=== PATIENT | female | born 1960 | race Caucasian/White ===

== ENCOUNTER 2024-11-30 03:09 | Inpatient (IN) | payer OTHER, SELFPAY ==
[2024-11-29 22:37] VITALS: BP 129/78
[2024-11-29 22:39] LABS: Glucose - Point of Care 89 mg/dl (70-99)
[2024-11-29 23:00] VITALS: BP 102/63
[2024-11-29 23:08] LABS: % Basophils 0.1 % (0-2); % Eosinophils 0.6 % (0-6); % Immature Granulocytes 0.8 % (0-0.5); % Lymphocytes 9.4 % (20.5-51.1); % Monocytes 7.4 % (1.7-9.3); % Neutrophils 81.7 % (42.2-75.2); Absolute Eosinophils 0.1 10^3/uL (0-0.7); Absolute Immature Granulocytes 0.1 10^3/uL (0-0.05); Absolute Lymphocytes 0.9 10^3/uL (1.2-3.4); Absolute Monocytes 0.7 10^3/uL (0.1-0.6); Absolute Neutrophils 8.2 10^3/uL (1.4-6.5); Hematocrit 27.7 % (37.0-47.0); Hemoglobin 8.8 g/dL (12.0-16.0); Mean Corp Hgb Conc. 31.8 g/dL (33.0-37.0); Mean Corpuscular Hgb 28.9 pg (27.0-31.0); Mean Corpuscular Volume 90.8 fL (81.0-99.0); Mean Platelet Volume 10.2 fL (7.4-10.4); Nucleated Red Blood Cells % 0 %; Platelet Count 274 10^3/uL (130-400); Red Blood Cell Count 3.05 10^6/uL (4.20-5.40); Red Cell Dist. Width 15.4 % (11.5-14.5)
[2024-11-29 23:14] LABS: ALT (SGPT) 12 U/L (0-35); AST (SGOT) 15 U/L (14-36); Albumin 2.8 g/dl (3.5-5.0); Alkaline Phosphatase 87 U/L (38-126); Blood Urea Nitrogen 62 mg/dl (7-17); Calcium 8.7 mg/dl (8.4-10.2); Carbon Dioxide 26 mmol/L (22-30); Chloride 106 mmol/L (98-107); Glucose 65 mg/dl (70-99); Potassium 3.5 mmol/L (3.5-5.1); Sodium 137 mmol/L (135-145); Total Bilirubin 0.2 mg/dl (0.2-1.3); Total Protein 4.8 g/dl (6.3-8.2); eGFR 42.01
--- NOTE | 2024-11-29 23:34 | ED.GENMED ---
History of Present Illness
General
Chief Complaint: Blood Sugar Problem
Source: patient
Exam Limitations: none
Time Seen by Provider: 11/29/24 23:16
Nursing documentation reviewed up to this point in time: agreed with
History of Present Illness
History of Present Illness:
64-year-old female presents emergency department after being called for unresponsiveness. Blood sugar read low, EMS gave glucagon. Blood sugar on arrival to ED was 89.
Past History
Past History
ED Past Medical History: COPD, CVA, HTN, Hypercholesterolemia, IDDM and Psychiatric (Anxiety, depression)
Review of Systems
Review of Systems
Allergies reviewed?: Yes
Unable to obtain full review of systems at this time due to: due to acuity
All Other Systems: Not applicable
Constitutional: Reports fatigue
EENT: Reports no symptoms
Respiratory: Denies trouble breathing
Cardiac: Denies chest pain
Phy Exam
Physical Exam
Physical Exam:
Physical Exam
General: Ill-appearing, temperature 96.0
Neck: supple. no meningeal signs. normal posterior pharynx
Heart: s1/s2 regular rate and rhythm, no murmur. equal radial
pulses.
HEENT: Pupils equal round reactive to light, EOMI
Lungs: no acute respiratory distress. clear bilaterally
Abdomen: normal bowel sounds. not tender. no CVAT
Neuro: alert and oriented to person. Wiggles hands and feet when asked, but states she feels too weak
Skin: no rash
Psychiatric: Cooperative but very weak
Extremities: no edema. no calf tenderness. negative homans. good distal pulses
Course
Orders/Labs/Results
Orders:
Orders
11/29/24 22:55
CMP [Comprehensive Metabolic Panel] Urgent
Complete Blood Count/With Diff Urgent
Creatine Phosphokinase Urgent
Comment: ADD ON
11/29/24 23:21
Add On- LAB Urgent
Tests Added?: CPK
11/29/24 23:32
Electrocardiogram (*1) Urgent
Reason for Study: Other
Other Reason for Exam: change in mentation
EKG- Treatment ONCE
11/29/24 23:34
Bedside Glucose- Treatment ONCE
11/30/24 00:00
CT Head W/o Iv Contrast Urgent
Reason For Exam: altered mental status
CR Pelvis - 1 Or 2 Views Urgent
Reason For Exam: possible fall
11/30/24 00:19
CT Pelvis W/o Iv Contrast Urgent
Comment:
Reason For Exam: unclear if fall, right leg rotated, abn xray
Abnormal Lab Results
11/29/24
22:55
RBC 3.05 L 10^6/uL
(4.20-5.40)
Hgb 8.8 L g/dL
(12.0-16.0)
Hct 27.7 L %
(37.0-47.0)
MCHC 31.8 L g/dL
(33.0-37.0)
RDW 15.4 H %
(11.5-14.5)
Abs Immat Gran (auto) 0.1 H 10^3/uL
(0-0.05)
Absolute Neuts (auto) 8.2 H 10^3/uL
(1.4-6.5)
Absolute Lymphs (auto) 0.9 L 10^3/uL
(1.2-3.4)
Absolute Monos (auto) 0.7 H 10^3/uL
(0.1-0.6)
Immature Gran % 0.8 H %
(0-0.5)
Neutrophils % 81.7 H %
(42.2-75.2)
Lymphocytes % 9.4 L %
(20.5-51.1)
BUN 62 H mg/dl
(7-17)
Creatinine 1.4 H mg/dL
(0.6-1.0)
Glucose 65 L mg/dl
(70-99)
Total Protein 4.8 L g/dl
(6.3-8.2)
Albumin 2.8 L g/dl
(3.5-5.0)
11/29/24 22:55
11/29/24 22:55
Vital Signs
Initial and Last Documented VS:
Initial Vital Signs
Temp Pulse Resp BP Pulse Ox
96.0 F L 69 10 129/78 98
11/29/24 22:37 11/29/24 22:37 11/29/24 22:37 11/29/24 22:37 11/29/24 22:37
Last Documented Vital Signs
Temp Pulse Resp BP Pulse Ox
96.0 F L 63 9 109/63 98
11/29/24 22:37 11/30/24 00:00 11/30/24 00:00 11/30/24 00:00 11/30/24 00:00
MDM/Problems Addressed
Differential Diagnosis Includes:
Hypoglycemia, CVA, pelvic fracture
MDM/Problems Addressed:
64-year-old female with unresponsive episode, acute kidney injury, persistent weakness despite improvement in blood sugar. No acute findings on CT head or CT pelvis. Admit to hospitalist.
Chronic conditions affecting care: DM and HTN
Acute Exacerbation and/or Progression of Chronic Illness: DM
*Radiology
Radiology exam reviewed: radiology read reviewed (CT head no acute findings, CT pelvis shows severe osteopenia, difficult to rule out fracture)
*Pulse Oximetry
Patient hypoxic: no
*EKG
Interpreted by ED Provider?: Yes
EKG Intrepretation Date: 11/29/24
EKG Intrepretation Time: 23:57
Interpretation: abnormal
Comparison EKG: no comparison EKG present
Heart Rate: 66
Rate: normal
Rhythm: sinus
[place]: left axis deviation
Interval: normal interval
QRS Pattern: right bundle branch block
Ischemia: no ischemia
*Aba Therapist Interpretation
Rate: normal
Interpretation: normal
Heart Rate: 64
Rhythm: sinus
*Critical Care Note
Total Time (30-74mins, 75-104mins- exclusive of procedures): Not Applicable
Patient Management
Social determinants of health affecting care: Living situation
Discussion with other providers: Hospitalist
Escalation/DeEscalation of care consider admission/obs:
admit indicated
ED Attending Note
-
Portions of this chart may have been created with voice recognition software.� Occasional wrong word or��sound alike� substitutions may have occurred due to the inherent limitations of voice recognition software.
Discharge Plan
Departure
Patient Disposition: Admit
Date of Disposition: 11/30/24
Time of Disposition: 01:12
Admit to: Telemetry
Presentation/result/management discussed w/ accepting MD/DO: Hospitalist
Patient with high blood pressure during this ER visit?: No
Condition: Fair
Discharge Problem:
Weakness, Acute alteration in mental status, Hypoglycemia, Acute renal failure, Osteopenia
Prescriptions:
No Action
furosemide [Lasix] 40 mg Tablet
40 mg PO BID
atorvastatin 80 mg Tablet
80 mg PO DAILY
carvedilol 25 mg Tablet
25 mg PO BID
sennosides [senna] 8.6 mg Tablet
17.2 mg PO BID
albuterol sulfate 2.5 mg /3 mL (0.083 %) Solution For Nebulization
2.5 mg INHALATION Q6H
artificial tears solution Drops
2 drp OPHTHALMIC (EYE) BID
metolazone 5 mg Tablet
5 mg PO .SAT,,SAT,,FRI
melatonin 3 mg Tablet
3 mg PO HS
spironolactone 25 mg Tablet
25 mg PO DAILY
clonidine HCl 0.2 mg Tablet
0.2 mg PO Q8
nifedipine 90 mg Tablet Extended Release 24hr
90 mg PO DAILY
hydralazine 100 mg Tablet
100 mg PO Q8
ferrous sulfate 325 mg (65 mg iron) Tablet
325 mg PO DAILY
metformin 1,000 mg Tablet
1,000 mg PO BID
aspirin 81 mg Tablet,Chewable
81 mg PO DAILY
bisacodyl [Dulcolax (bisacodyl)] 5 mg Tablet,Delayed Release (Dr/Ec)
5 mg PO DAILY
insulin lispro [Humalog U-100 Insulin] 100 unit/mL Solution
30 unit SC .AFTERNOON
lisinopril 40 mg Tablet
40 mg PO DAILY
sertraline 50 mg Tablet
75 mg PO DAILY
Humalog U-100 Insulin 100 unit/mL Cartridge
32 unit SC BID
Rx Instructions:
hold for <100
gabapentin 300 mg Tablet
300 mg PO TID
insulin glargine [Lantus Solostar U-100 Insulin] 100 unit/mL (3 mL) Insulin Pen
38 unit SC HS
menthol-zinc oxide [Moisture Barrier Ointment] 0.44-20.6 % Ointment
1 applic TOPICAL DAILY
Rx Instructions:
buttocks
Eliquis 5 mg Tablet
5 mg PO BID
potassium chloride 20 mEq Tablet Extended Release
20 meq PO DAILY
Referrals:
Doug Pérez MD [Family Provider] -
Interventions
Interventions:
*Risk Screen - Suicide Last Done: 11/29/24 22:37
*General Assessment Last Done: 11/29/24 22:37
*Neglect/Abuse Screening Last Done: 11/29/24 22:37
ED- Fall Risk Assessment Last Done: 11/30/24 00:14
*ED COVID-19 Vaccine History Last Done: 11/29/24 22:37
ED- Neurological Assessment Last Done: 11/30/24 00:14
Discharge Date and Time
Print Language: FILIPINO
[2024-11-29 23:37] LABS: Creatine Phosphokinase 34 U/L (30-135)
[2024-11-29 23:55] LABS: Glucose - Point of Care 94 mg/dl (70-99)
[2024-11-30] VITALS (16 sets, daily range): BP systolic 109–149; BP diastolic 43–97; BMI 42.8
--- NOTE | 2024-11-30 01:00 | EDRN ---
Patient is talking more with staff and more awake and oriented then when she originally came in, will continue to monitor
--- NOTE | 2024-11-30 02:43 | HPS.HSE ---
Family Physician
-
Family Physician: Doug Pérez
Chief Complaint
-
Unresponsiveness
History of Present Illness
Patient is a 64y F with PMH significant for HTN, DM-II and prior CVA who presents to ED for evaluation of unresponsive episode. History obtained from [facility] record / EMS report and ED staff primarily. Patient was found to be unresponsive at [facility] this
evening and EMS was called. They found that her fingerstick glucose initially registered as 'Lo'. They administered glucagon and patient was brought to the ED for further evaluation and treatment. Follow-up blood glucose was 73. Here in the ED,
patient gradually became more responsive. At the time of my examination she complained of feeling cold but otherwise repeatedly stated 'I'm fine' to questions. Speech somewhat sluggish / slow.
Patient denies any pain, dyspnea, etc.
Patient is unable to provide any additional details regarding her history or events leading to this hospitalization.
She has no prior visits here - is typically hospitalized at [facility] and we have contacted them for records.
Medical History
Past Medical History
Past Medical History: Reports Other
Additional Past Medical History:
ASCVD / Prior CVA
Chronically Bedbound / Ambulatory Dysfunction
Hypertension
DM-II
HF- Unknown Type
Morbid Obesity
Anxiety / Depression
Anemia
Past Surgical History: Reports Other
Additional Past Surgical History:
None Known
Social History
Tobacco: Non-smoker
Alcohol: Occasional
Drug: None
Family History
Family History: Unable to Obtain
Allergies / Home Medications
Allergies reflects when Allergies were last updated in [facility].
Home Medications with original date entered in [facility]
Allergy/Medication List:
Allergies
Allergy/AdvReac Type Severity Reaction Status Date / Time
No Known Allergies Allergy Unverified 11/29/24 22:54
Home Medications
albuterol sulfate 2.5 mg/3 mL (0.083 %) solution for nebulization 2.5 mg inhalation Q6H 11/29/24
apixaban 5 mg tablet (Eliquis) 5 mg PO BID 11/29/24
artificial tears solution eye drops 2 drp ophthalmic (eye) BID 11/29/24
aspirin 81 mg chewable tablet 81 mg PO DAILY 11/29/24
atorvastatin 80 mg tablet 80 mg PO DAILY 11/29/24
bisacodyl 5 mg tablet,delayed release (Dulcolax (bisacodyl)) 5 mg PO DAILY 11/29/24
carvedilol 25 mg tablet 25 mg PO BID 11/29/24
clonidine HCl 0.2 mg tablet 0.2 mg PO Q8 11/29/24
ferrous sulfate 325 mg (65 mg iron) tablet 325 mg PO DAILY 11/29/24
furosemide 40 mg tablet (Lasix) 40 mg PO BID 11/29/24
gabapentin 300 mg tablet 300 mg PO TID 11/29/24
hydralazine 100 mg tablet 100 mg PO Q8 11/29/24
insulin glargine 100 unit/mL (3 mL) subcutaneous pen (Lantus Solostar U-100 Insulin) 38 unit SC HS 11/29/24
insulin lispro 100 unit/mL subcutaneous cartridge (Humalog U-100 Insulin) 32 unit SC BID 11/29/24
insulin lispro 100 unit/mL subcutaneous solution (Humalog U-100 Insulin) 30 unit SC .AFTERNOON 11/29/24
lisinopril 40 mg tablet 40 mg PO DAILY 11/29/24
melatonin 3 mg tablet 3 mg PO HS 11/29/24
menthol 0.44 %-zinc oxide 20.6 % topical ointment (Moisture Barrier Ointment) 1 applic topical DAILY 11/29/24
metformin 1,000 mg tablet 1,000 mg PO BID 11/29/24
metolazone 5 mg tablet 5 mg PO .MON,TUES,WED,TH,FRI 11/29/24
nifedipine 90 mg tablet,extended release 24 hr 90 mg PO DAILY 11/29/24
potassium chloride 20 mEq tablet,extended release 20 meq PO DAILY 11/29/24
sennosides 8.6 mg tablet (senna) 17.2 mg PO BID 11/29/24
sertraline 50 mg tablet 75 mg PO DAILY 11/29/24
spironolactone 25 mg tablet 25 mg PO DAILY 11/29/24
Review of Systems
-
History Source: Patient
Constitutional: Reports Chills (feels cold); Denies Fever
EENT: Denies Sore Throat
Respiratory: Denies Cough
Cardiac: Denies Chest Pain
Abdomen/GI: Denies Abdominal Pain, Nausea, Vomiting or Diarrhea
: Denies Dysuria or Frequency
Musculoskeletal: Reports Edema; Denies Joint Pain
Neurological: Reports Weakness; Denies Dizzy or Headache
Psych: Denies Depression or Anxiety
Physical Exam
Vital Signs
Vital Signs
Temp Pulse Resp BP Pulse Ox
96.0 F L 64 9 113/65 100
11/29/24 22:37 11/30/24 02:00 11/30/24 02:00 11/30/24 02:00 11/30/24 02:00
Physical Exam
General: Other (Pale, obese female in no acute distress. Awake and answers questions / follows commands. Slow movement / sluggish speech.)
HEENT: Moist mucous membranes and Other (Poor dentition. Thick neck.)
Respiratory: Other (Decreased at bases - otherwise clear.)
Cardiac: S1/S2 and Regular Rhythm; No Murmur
GI: Soft, Non Tender, Non Distended and Normal Bowel Sounds
Musculoskeletal: No Clubbing, No Cyanosis and Other (3+ pitting edema to the thighs bilaterally.)
Skin: Other (Scattered ecchymoses - especially on upper extremities. Scratches / superficial lacerations L upper arm.)
Neuro: Awake; No Oriented
Laboratory Results
-
11/29/24 22:55
11/29/24 22:55
Laboratory Results
Total Bilirubin 0.2 mg/dl (0.2-1.3) 11/29/24 22:55
AST 15 U/L (14-36) 11/29/24 22:55
ALT 12 U/L (0-35) 11/29/24 22:55
Alkaline Phosphatase 87 U/L (38-126) 11/29/24 22:55
Impression/Plan
-
A/P: Patient is a 64y F with PMH significant for HTN, DM-II and prior CVA who presents to ED from [place] for evaluation of altered mental status / unresponsiveness.
Unresponsiveness
Hypothermia
DM-II with Hypoglycemia
- Admit for further evaluation and treatment.
- Monitor glucose for improvement and provide additional dextrose / glucagon / etc if needed.
- Decrease basal dose somewhat. Decrease mealtime dosing significantly for now (30 units to 10 units with meals).
- Check TFTs.
- Follow temperature curve and monitor for any new / focal symptoms.
- Follow for clinical improvement - increased responsiveness since arrival here - ? baseline.
- No evidence at this time of acute infectious process.
- Check influenza status. Observe off off antimicrobials.
Renal Insufficiency
- SCr = 1.4 with no prior values here for comparison.
- Review prior records when available.
- Follow renal function for changes over the next 48 hours.
- Suspect this is CKD III.
ASCVD
History of CVA
Dysphagia
Ambulatory Dysfunction
- CT done in the ED this evening shows several old / known strokes.
- No new / acute findings reported.
- Continue current med regimen including BP control, ASA, Eliquis, etc.
- ? A-Fib history - no note of this in [facility] record. Monitor on tele.
- Follow for any new neurologic deficits.
- Records suggest residual dysphagia from prior CVA and patient chronically non-ambulatory.
- PT / OT / Speech evals.
- Modified diet.
Benign Hypertension
Polypharmacy
- Patient on significant multi-drug regimen for hypertension.
- BP in the ED is excellent / on the lower side at present.
- Will continue current regimen - with holding parameters for most agents.
- Monitor actual use / administrations and adjust regimen if needed for adequate control.
Normocytic Anemia
- Chronic anemia noted on NH record.
- Unclear etiology. Check iron, B12, etc.
- Monitor for any evident blood loss.
- Follow H&H for changes.
Osteopenia
- CT Pelvis done in the ED - not clear what complaint / issue prompted this, but abnormalities noted.
- Severe osteopenia with ? artifact v fracture in the R proximal femur.
- Would likely benefit from osteoporosis therapy as an outpatient.
- Follow for any clinical symptoms / pain / etc and consider additional imaging of the pelvis / femur if indicated.
Morbid Obesity secondary to excess calories
- Affects all aspects of care.
- Patient is unable to ambulate / exercise to significant extent that would contribute to weight loss.
DVT Prophylaxis: On Eliquis
Code Status: Full
[2024-11-30 03:12] LABS: Glucose - Point of Care 84 mg/dl (70-99)
--- NOTE | 2024-11-30 03:15 | EDRN ---
Rolled patient to check temp, wasn't ready orally or axillary, was 94.7, informed Dr. Lyman and placed patient on a bear hugger to warm, patient's blood sugar also re-checked and remains stable at this time, patient is alert and talking with me, alot
more oriented now then she was earlier.
[2024-11-30 04:45] LABS: TSH Reflex To Free T4 1.34 uIU/ml (0.47-4.68)
--- NOTE | 2024-11-30 06:22 | EDRN ---
Patients temp is now normal, bear hugger turned off and warm blankets applied, will continue to monitor, son also called to check on her and got an update, patient is resting comfortably
[2024-11-30 06:29] LABS: Hematocrit 27.5 % (37.0-47.0); Hemoglobin 8.7 g/dL (12.0-16.0); Mean Corp Hgb Conc. 31.6 g/dL (33.0-37.0); Mean Corpuscular Hgb 28.7 pg (27.0-31.0); Mean Corpuscular Volume 90.8 fL (81.0-99.0); Mean Platelet Volume 10.4 fL (7.4-10.4); Platelet Count 255 10^3/uL (130-400); Red Blood Cell Count 3.03 10^6/uL (4.20-5.40); Red Cell Dist. Width 15.5 % (11.5-14.5); White Blood Cell Count 9.9 10^3/uL (4.8-10.8)
[2024-11-30 06:34] LABS: Blood Urea Nitrogen 62 mg/dl (7-17); Calcium 8.6 mg/dl (8.4-10.2); Carbon Dioxide 23 mmol/L (22-30); Chloride 107 mmol/L (98-107); Estimated Creatinine Clearance 58 ml/min; Glucose 83 mg/dl (70-99); Iron 47 ug/dl (37-170); Magnesium 1.9 mg/dl (1.6-2.3); Sodium 137 mmol/L (135-145); eGFR 45.92
[2024-11-30 06:43] LABS: Percent Saturation 20 % (20-50); Total Iron Binding Capacity 232 ug/dl (265-497)
[2024-11-30 07:05] LABS: Glucose - Point of Care 84 mg/dl (70-99)
[2024-11-30] MEDS: NOVOLOG FLEXPEN SC ×3 (07:58→17:37)
[2024-11-30] MEDS: PROCARDIA XL (EXTENDED RELEASE) 90 MG PO (08:01)
[2024-11-30] MEDS: SENOKOT 17.2 MG PO ×2 (08:01→20:08)
[2024-11-30] MEDS: LIPITOR 80 MG PO (08:02)
[2024-11-30] MEDS: LOW STRENGTH ASPIRIN 81 MG PO (08:02)
[2024-11-30] MEDS: ZOLOFT 75 MG PO (08:02)
[2024-11-30] MEDS: ALDACTONE 25 MG PO (08:02)
[2024-11-30] MEDS: NEURONTIN 300 MG PO ×3 (08:03→22:10)
[2024-11-30] MEDS: CATAPRES 0.2 MG PO ×3 (08:03→23:09)
[2024-11-30] MEDS: ZESTRIL 40 MG PO (08:04)
[2024-11-30] MEDS: FEOSOL 325 MG PO (08:05)
[2024-11-30] MEDS: APRESOLINE 100 MG PO ×3 (08:05→23:09)
[2024-11-30] MEDS: ELIQUIS 5 MG PO ×2 (08:05→20:08)
[2024-11-30] MEDS: COREG 25 MG PO ×2 (08:06→20:08)
[2024-11-30] MEDS: LASIX 40 MG PO ×2 (08:06→20:09)
[2024-11-30] MEDS: KCL 20 MEQ PO (08:07)
[2024-11-30 09:01] LABS: Folate 5.1 ng/ml (2.76-20); Vitamin B12 235 pg/ml (239-931)
[2024-11-30 09:02] LABS: Glycohemoglobin (HgbA1c) 6.3 % (4.0-5.6)
--- NOTE | 2024-11-30 09:28 | PTOTSP ---
Speech Therapy Assessment
Swallowing: Patient presents with evidence of an oral phase dysphagia characterized by prolonged mastication and reduced oral clearance. These findings are likely related to combination of limited dentition and current confusion and slow processing
and response time.
Cognitive/Communication: Unsure of baseline cognitive communication status but patient with slow processing, occasional perseveration on responses, reduced auditory processing with more than 1-2 step commands, and anomia. Given past history of CVA,
suspect at least some previous deficits.
Recommend
1. IDDSI 4 (puree) and Thin Liquids
2. Meds whole in applesauce.
3. Aspiration precautions and assist with set up, and feeding as needed.
4. ST will follow to determine diet tolerance and/or advancement and need for follow up services at discharge.
[2024-11-30] MEDS: NOVOLOG FLEXPEN-MODERATE RESISTANCE SC ×3 (10:30→17:38)
[2024-11-30 10:36] LABS: Glucose - Point of Care 84 mg/dl (70-99)
--- NOTE | 2024-11-30 13:39 | W.PN.HOSP.TC ---
Today's Communication/Plan
-
Monitor vital signs see plan
Suspect symptoms could likely be from hypoglycemia
Continue to monitor on lower dose of insulin
Speech following, now on dysphagia diet
Monitor mentation
start vitamin B12 repletion
Assessment / Plan
Assessment / Plan
General: Other (Pale, obese female in no acute distress. Awake and answers questions / follows commands. Slow movement / sluggish speech.)
HEENT: Moist mucous membranes and Other (Poor dentition. Thick neck.)
Respiratory: Other (Decreased at bases - otherwise clear.)
Cardiac: S1/S2 and Regular Rhythm; No Murmur
GI: Soft, Non Tender, Non Distended and Normal Bowel Sounds
Musculoskeletal: Other (3+ pitting edema to the thighs bilaterally.)
Skin: Other (Scattered ecchymoses - especially on upper extremities. Scratches / superficial lacerations L upper arm.)
Neuro: Awake; No Oriented
Unresponsiveness
Hypothermia
DM-II with Hypoglycemia
- Monitor glucose for improvement and provide additional dextrose / glucagon / etc if needed.
- Decrease basal dose Decrease mealtime dosing significantly for now (30 units to 10 units with meals).
TSH 1.34
- Follow temperature curve and monitor for any new / focal symptoms.
- Follow for clinical improvement - increased responsiveness since arrival here - ? baseline.
- No evidence at this time of acute infectious process.
Renal Insufficiency
- SCr = 1.4 with no prior values here for comparison.
- Review prior records when available.
- Follow renal function for changes over the next 48 hours.
- Suspect this is CKD III.
ASCVD
History of CVA
Dysphagia
Ambulatory Dysfunction
- CT done in the ED this evening shows several old / known strokes.
- No new / acute findings reported.
- Continue current med regimen including BP control, ASA, Eliquis, etc.
- ? A-Fib history - no note of this in NH record. Monitor on tele.
- Follow for any new neurologic deficits.
- Records suggest residual dysphagia from prior CVA and patient chronically non-ambulatory.
- PT / OT
Speech following, on pur�ed diet
- Modified diet.
Benign Hypertension
Polypharmacy
- Patient on significant multi-drug regimen for hypertension.
- BP in the ED is excellent / on the lower side at present.
- Will continue current regimen - with holding parameters for most agents.
- Monitor actual use / administrations and adjust regimen if needed for adequate control.
Normocytic Anemia
- Chronic anemia noted on NH record.
- Unclear etiology. Low vitamin B12, replete
- Monitor for any evident blood loss.
- Follow H&H for changes.
Osteopenia
- CT Pelvis done in the ED - not clear what complaint / issue prompted this, but abnormalities noted.
- Severe osteopenia with ? artifact v fracture in the R proximal femur.
- Would likely benefit from osteoporosis therapy as an outpatient.
- Follow for any clinical symptoms / pain / etc and consider additional imaging of the pelvis / femur if indicated.
Morbid Obesity secondary to excess calories
- Affects all aspects of care.
- Patient is unable to ambulate / exercise to significant extent that would contribute to weight loss.
DVT Prophylaxis: On Eliquis
Code Status: Full
Nonbillable note
Anticipated Discharge: Within 24 hours
Subjective/Interval History
-
Date of Service: November 30, 2024
denies nausea
Objective Data
-
Labs:
Laboratory Results
11/30/24
05:51
WBC 9.9
Hgb 8.7 L
Hct 27.5 L
Plt Count 255
Sodium 137
Potassium 4.0
Chloride 107
Carbon Dioxide 23
BUN 62 H
Creatinine 1.3 H
Glucose 83
Calcium 8.6
Vital Signs:
Vital Signs
Temp Pulse Resp BP Pulse Ox
98.0 F 91 13 145/43 99
11/30/24 06:14 11/30/24 08:00 11/30/24 08:00 11/30/24 08:00 11/30/24 07:00
[2024-11-30 14:11] LABS: Glucose - Point of Care 103 mg/dl (70-99)
[2024-11-30] MEDS: CYANOCOBALAMIN 1000 MCG IM (15:42)
[2024-11-30 17:52] LABS: Glucose - Point of Care 137 mg/dl (70-99)
[2024-11-30 21:39] LABS: Glucose - Point of Care 166 mg/dl (70-99)
[2024-11-30] MEDS: LANTUS 0.3 UNITS SC (22:14)
[2024-12-01 02:56] VITALS: BP 142/63
[2024-12-01 02:58] LABS: Glucose - Point of Care 188 mg/dl (70-99)
[2024-12-01 06:00] VITALS: BMI 42.6
[2024-12-01 07:59] LABS: % Basophils 0.1 % (0-2); % Eosinophils 0.5 % (0-6); % Immature Granulocytes 0.9 % (0-0.5); % Lymphocytes 12.9 % (20.5-51.1); % Monocytes 8.4 % (1.7-9.3); % Neutrophils 77.2 % (42.2-75.2); Absolute Immature Granulocytes 0.1 10^3/uL (0-0.05); Absolute Monocytes 0.7 10^3/uL (0.1-0.6); Absolute Neutrophils 6.2 10^3/uL (1.4-6.5); Hemoglobin 8.6 g/dL (12.0-16.0); Mean Corp Hgb Conc. 31.9 g/dL (33.0-37.0); Mean Corpuscular Hgb 29.4 pg (27.0-31.0); Mean Corpuscular Volume 92.2 fL (81.0-99.0); Mean Platelet Volume 10.8 fL (7.4-10.4); Nucleated Red Blood Cells % 0 %; Platelet Count 253 10^3/uL (130-400); Red Blood Cell Count 2.93 10^6/uL (4.20-5.40); Red Cell Dist. Width 15.8 % (11.5-14.5)
[2024-12-01 08:05] LABS: Glucose - Point of Care 107 mg/dl (70-99)
[2024-12-01 08:08] VITALS: BP 163/88
[2024-12-01 08:34] LABS: Blood Urea Nitrogen 65 mg/dl (7-17); Calcium 8.5 mg/dl (8.4-10.2); Carbon Dioxide 23 mmol/L (22-30); Chloride 104 mmol/L (98-107); Estimated Creatinine Clearance 56 ml/min; Glucose 107 mg/dl (70-99); Potassium 4.2 mmol/L (3.5-5.1); Sodium 135 mmol/L (135-145); eGFR 45.92
[2024-12-01] MEDS: NOVOLOG FLEXPEN-MODERATE RESISTANCE SC (09:21)
[2024-12-01] MEDS: DESENEX/MITRAZOL/ZEASORB 1 APPLIC TOPICAL ×2 (09:34→21:29)
[2024-12-01] MEDS: ZAROXOLYN 5 MG PO (09:34)
[2024-12-01] MEDS: PROCARDIA XL (EXTENDED RELEASE) 90 MG PO (09:34)
[2024-12-01] MEDS: APRESOLINE 100 MG PO ×2 (09:35→17:04)
[2024-12-01] MEDS: CATAPRES 0.2 MG PO (09:35)
[2024-12-01] MEDS: NEURONTIN 300 MG PO ×3 (09:35→21:29)
[2024-12-01] MEDS: LIPITOR 80 MG PO (09:35)
[2024-12-01] MEDS: SENOKOT PO ×2 (09:35→21:07)
[2024-12-01] MEDS: LOW STRENGTH ASPIRIN 81 MG PO (09:36)
[2024-12-01] MEDS: ALDACTONE 25 MG PO (09:36)
[2024-12-01] MEDS: LASIX 40 MG PO ×2 (09:36→21:29)
[2024-12-01] MEDS: COREG 25 MG PO ×2 (09:36→21:29)
[2024-12-01] MEDS: ZESTRIL 40 MG PO (09:36)
[2024-12-01] MEDS: FEOSOL 325 MG PO (09:36)
[2024-12-01] MEDS: ZOLOFT 75 MG PO (09:36)
[2024-12-01] MEDS: CYANOCOBALAMIN 1000 MCG IM (09:37)
[2024-12-01] MEDS: KCL 20 MEQ PO (09:37)
[2024-12-01] MEDS: ELIQUIS 5 MG PO ×2 (09:37→21:29)
[2024-12-01] MEDS: NOVOLOG FLEXPEN 10 UNITS SC ×3 (10:36→17:04)
[2024-12-01 11:38] VITALS: BP 156/82
[2024-12-01 12:09] LABS: Glucose - Point of Care 178 mg/dl (70-99)
--- NOTE | 2024-12-01 12:25 | W.PN.HOSP.TC ---
Today's Communication/Plan
-
Monitor vital signs see plan
Diarrhea overnight, stool studies positive for norovirus
Symptomatic treatment for norovirus
Monitor further episodes of hypoglycemia
Continue insulin
Assessment / Plan
Assessment / Plan
General: Other (Pale, obese female in no acute distress. Awake and answers questions / follows commands. Slow movement / sluggish speech.)
HEENT: Moist mucous membranes and Other (Poor dentition. Thick neck.)
Respiratory: Other (Decreased at bases - otherwise clear.)
Cardiac: S1/S2 and Regular Rhythm; No Murmur
GI: Soft, Non Tender, Non Distended and Normal Bowel Sounds
Musculoskeletal: Other (3+ pitting edema to the thighs bilaterally.)
Skin: Other (Scattered ecchymoses - especially on upper extremities. Scratches / superficial lacerations L upper arm.)
Neuro: Awake; No Oriented
Unresponsiveness
Hypothermia
DM-II with Hypoglycemia
- Symptoms appears likely secondary to hypoglycemia. Now sugar has been better with lower dose of insulin.
- Decrease basal dose Decrease mealtime dosing significantly for now (30 units to 10 units with meals).
TSH 1.34
- Follow temperature curve and monitor for any new / focal symptoms.
- Follow for clinical improvement - increased responsiveness since arrival here
- No evidence at this time of acute infectious process.
Renal Insufficiency
- SCr = 1.4 with no prior values here for comparison.
- Review prior records when available.
- Follow renal function for changes over the next 48 hours.
- Suspect this is CKD III.
ASCVD
History of CVA
Dysphagia
Ambulatory Dysfunction
- CT done in the ED this evening shows several old / known strokes.
- No new / acute findings reported.
- Continue current med regimen including BP control, ASA, Eliquis, etc.
- ? A-Fib history - no note of this in NH record. Monitor on tele.
- Follow for any new neurologic deficits.
- Records suggest residual dysphagia from prior CVA and patient chronically non-ambulatory.
- PT / OT
Speech following, on pur�ed diet
- Modified diet.
Diarrhea overnight
Positive for norovirus
Symptomatic treatment
Benign Hypertension
Polypharmacy
- Patient on significant multi-drug regimen for hypertension.
- BP in the ED is excellent / on the lower side at present.
- Will continue current regimen - with holding parameters for most agents.
- Monitor actual use / administrations and adjust regimen if needed for adequate control.
Normocytic Anemia
- Chronic anemia noted on NH record.
- Unclear etiology. Low vitamin B12, replete
- Monitor for any evident blood loss.
- Follow H&H for changes.
Osteopenia
- CT Pelvis done in the ED - not clear what complaint / issue prompted this, but abnormalities noted.
- Severe osteopenia with ? artifact v fracture in the R proximal femur.
- Would likely benefit from osteoporosis therapy as an outpatient.
- Follow for any clinical symptoms / pain / etc and consider additional imaging of the pelvis / femur if indicated.
Morbid Obesity secondary to excess calories
- Affects all aspects of care.
- Patient is unable to ambulate / exercise to significant extent that would contribute to weight loss.
DVT Prophylaxis: On Eliquis
Code Status: Full
Nonbillable note
Anticipated Discharge: Within 24 hours
Subjective/Interval History
-
Date of Service: December 01, 2024
Diarrhea overnight
Objective Data
-
Labs:
Laboratory Results
12/01/24
07:03
WBC 8.0
Hgb 8.6 L
Hct 27.0 L
Plt Count 253
Sodium 135
Potassium 4.2
Chloride 104
Carbon Dioxide 23
BUN 65 H
Creatinine 1.3 H
Glucose 107 H
Calcium 8.5
Vital Signs:
Vital Signs
Temp Pulse Resp BP Pulse Ox
98.1 F 57 18 156/82 100
12/01/24 11:38 12/01/24 11:38 12/01/24 11:38 12/01/24 11:38 12/01/24 11:38
I&O
11/30/24 12/01/24 12/02/24
06:59 06:59 06:59
Intake Total 0 / 0
Balance 0 / 0
[2024-12-01] MEDS: IMODIUM 2 MG PO (13:05)
[2024-12-01] MEDS: NOVOLOG FLEXPEN-MODERATE RESISTANCE 1 UNITS SC (13:06)
--- NOTE | 2024-12-01 13:34 | CM ---
Addendum entered by Ilana Marin 12/01/24 13:57:
updates via [employer] with [employer].
Original Note:
Patient seen bedside.
Patient if from [facility].
Spoke with Pedro from [facility], patient not very motivated for therapy, they do not need an insurance auth for return.
patient pivots to , self propels.
Patient needs assistance with ADLs.
PCP and Pharmacy verified.
Plan: return to a [facility] when stable
[facility]
Report# [phone]
fax# [phone]
--- NOTE | 2024-12-01 14:45 | WOUNDNOTE ---
Kacey Mauricio's Sacrum taken by nurse.
--- NOTE | 2024-12-01 14:45 | WOUNDNOTE ---
WON RN NOTE: Patient admitted with hypoglycemia, change in mental status and acute renal failure. Reviewed PMH in chart. Asked by nurse Emelia to assist assessment of sacrum to determine if has DTI pressure injury. Requested nurse TT a picture to me
to view otherwise would need to wait till tomorrow. Photo viewed, has some mild blanchable redness on buttocks and sacrum, protective silicone foam in use. Few small bruises on R buttock and lower back. Nurse made aware that DTI is not visible and
recommend continue same dressing. Will sign off unless needed.
[2024-12-01 15:40] VITALS: BP 102/62
--- NOTE | 2024-12-01 16:43 | PTOTSP ---
Dysphagia Therapy
Impression: Mild-moderate oral stage dysphagia without signs of pharyngeal dysphagia.
Recommendations:
1. IDDSI Level 5 Minced and Moist, Thin Liquids
2. Medications: crushed in puree if medically cleared, otherwise attempt whole in puree
3. Strategies: supervision, assistance as needed, small single sips/bites, slow rate, alternate sips/bites to assist with oral clearance
4. Dysphagia tx f/u at the acute care level to determine if/when diet advancement appropriate or if further instrumental testing warranted
[2024-12-01] MEDS: NOVOLOG FLEXPEN-MODERATE RESISTANCE 3 UNITS SC (17:03)
[2024-12-01] MEDS: CATAPRES PO ×2 (17:04→17:17)
[2024-12-01 17:08] LABS: Glucose - Point of Care 215 mg/dl (70-99)
[2024-12-01 19:55] VITALS: BP 138/62
[2024-12-01] MEDS: LANTUS 0.3 UNITS SC (21:37)
[2024-12-01 21:38] LABS: Glucose - Point of Care 159 mg/dl (70-99)
[2024-12-01 23:55] VITALS: BP 142/65
[2024-12-02] MEDS: CATAPRES 0.2 MG PO ×3 (00:27→15:02)
[2024-12-02] MEDS: APRESOLINE 100 MG PO ×3 (00:27→15:02)
[2024-12-02 03:48] VITALS: BP 131/74
[2024-12-02 06:00] VITALS: BMI 43.3
[2024-12-02 06:59] VITALS: BP 169/87
[2024-12-02 08:01] LABS: % Eosinophils 0.7 % (0-6); % Immature Granulocytes 0.9 % (0-0.5); % Monocytes 8.7 % (1.7-9.3); % Neutrophils 77.7 % (42.2-75.2); Absolute Eosinophils 0.1 10^3/uL (0-0.7); Absolute Immature Granulocytes 0.1 10^3/uL (0-0.05); Absolute Lymphocytes 0.9 10^3/uL (1.2-3.4); Absolute Monocytes 0.7 10^3/uL (0.1-0.6); Absolute Neutrophils 5.8 10^3/uL (1.4-6.5); Hematocrit 28.2 % (37.0-47.0); Hemoglobin 8.9 g/dL (12.0-16.0); Mean Corp Hgb Conc. 31.6 g/dL (33.0-37.0); Mean Corpuscular Hgb 28.7 pg (27.0-31.0); Mean Platelet Volume 10.5 fL (7.4-10.4); Nucleated Red Blood Cells % 0 %; Platelet Count 248 10^3/uL (130-400); Red Cell Dist. Width 15.6 % (11.5-14.5); White Blood Cell Count 7.5 10^3/uL (4.8-10.8)
[2024-12-02 08:10] LABS: Glucose - Point of Care 115 mg/dl (70-99)
[2024-12-02] MEDS: DESITIN MAXIMUM STRENGTH PASTE 1 APPLIC TOPICAL (08:37)
[2024-12-02] MEDS: DESENEX/MITRAZOL/ZEASORB 1 APPLIC TOPICAL (08:37)
[2024-12-02] MEDS: ELIQUIS 5 MG PO (08:39)
[2024-12-02] MEDS: PROCARDIA XL (EXTENDED RELEASE) 90 MG PO (08:39)
[2024-12-02] MEDS: LOW STRENGTH ASPIRIN 81 MG PO (08:39)
[2024-12-02] MEDS: NEURONTIN 300 MG PO ×2 (08:40→15:02)
[2024-12-02] MEDS: LIPITOR 80 MG PO (08:40)
[2024-12-02] MEDS: ZOLOFT 75 MG PO (08:40)
[2024-12-02] MEDS: COREG 25 MG PO (08:40)
[2024-12-02] MEDS: ZESTRIL 40 MG PO (08:41)
[2024-12-02] MEDS: ALDACTONE 25 MG PO (08:41)
[2024-12-02] MEDS: KCL 20 MEQ PO (08:41)
[2024-12-02] MEDS: FEOSOL 325 MG PO (08:42)
[2024-12-02] MEDS: LASIX 40 MG PO ×2 (08:42→15:02)
[2024-12-02] MEDS: CYANOCOBALAMIN 1000 MCG IM (08:42)
[2024-12-02] MEDS: NOVOLOG FLEXPEN-MODERATE RESISTANCE SC ×2 (08:43→12:31)
[2024-12-02] MEDS: NOVOLOG FLEXPEN 10 UNITS SC ×2 (08:44→13:17)
[2024-12-02] MEDS: FLUSH (NSS) 1 FLUSH IV (08:46)
[2024-12-02] MEDS: ZAROXOLYN 5 MG PO (08:46)
[2024-12-02] MEDS: SENOKOT PO (09:13)
[2024-12-02 10:04] LABS: Blood Urea Nitrogen 66 mg/dl (7-17); Calcium 8.7 mg/dl (8.4-10.2); Carbon Dioxide 22 mmol/L (22-30); Chloride 99 mmol/L (98-107); Estimated Creatinine Clearance 46 ml/min; Glucose 115 mg/dl (70-99); Sodium 134 mmol/L (135-145); eGFR 35.79
--- NOTE | 2024-12-02 11:00 | W.PN.HOSP.TC ---
Addendum entered and electronically signed by Trent Person MD 12/02/24 13:33:
Correction, creatinine 1.6 today
Addendum entered and electronically signed by Trent Person MD 12/02/24 11:10:
Time of discharge 38 minutes
Original Note:
Today's Communication/Plan
-
monitor vitals
see plan
dc today if [facility] can take patient
Symptomatic treatment for norovirus
Continue insulin
Assessment / Plan
Assessment / Plan
General: Other (Pale, obese female in no acute distress. Awake and answers questions
HEENT: Moist mucous membranes and Other (Poor dentition. Thick neck.)
Respiratory: Other (Decreased at bases - otherwise clear.)
Cardiac: S1/S2 and Regular Rhythm; No Murmur
GI: Soft, Non Tender, Non Distended and Normal Bowel Sounds
Musculoskeletal: Other (3+ pitting edema to the thighs bilaterally.)
Skin: Other (Scattered ecchymoses - especially on upper extremities. Scratches / superficial lacerations L upper arm.)
Neuro: Awake; No Oriented
Unresponsiveness
Hypothermia
DM-II with Hypoglycemia
- Symptoms appears likely secondary to hypoglycemia. Now sugar has been better with lower dose of insulin.
- Decrease basal dose Decrease mealtime dosing significantly for now (30 units to 10 units with meals).
TSH 1.34
- Follow temperature curve and monitor for any new / focal symptoms.
- Follow for clinical improvement - increased responsiveness since arrival here
- No evidence at this time of acute infectious process.
Renal Insufficiency; suspect CKD 3
- SCr = 1.4 with no prior values here for comparison. 2.6 today; no urinary symptoms
ASCVD
History of CVA
Dysphagia
Ambulatory Dysfunction
- CT done in the ED this evening shows several old / known strokes.
- No new / acute findings reported.
- Continue current med regimen including BP control, ASA, Eliquis, etc.
- ? A-Fib history - no note of this in NH record. Monitor on tele.
- Follow for any new neurologic deficits.
- Records suggest residual dysphagia from prior CVA and patient chronically non-ambulatory.
- PT / OT
Speech following, on pur�ed diet
- Modified diet.
Diarrhea
Improved
Positive for norovirus
Symptomatic treatment
Benign Hypertension
Polypharmacy
- Patient on significant multi-drug regimen for hypertension.
- BP in the ED is excellent / on the lower side at present.
- Will continue current regimen - with holding parameters for most agents.
- Monitor actual use / administrations and adjust regimen if needed for adequate control.
Normocytic Anemia
- Chronic anemia noted on NH record.
- Unclear etiology. Low vitamin B12, replete
- Monitor for any evident blood loss.
- Follow H&H for changes.
Osteopenia
- CT Pelvis done in the ED - not clear what complaint / issue prompted this, but abnormalities noted.
- Severe osteopenia with ? artifact v fracture in the R proximal femur.
- Would likely benefit from osteoporosis therapy as an outpatient.
- Follow for any clinical symptoms / pain / etc and consider additional imaging of the pelvis / femur if indicated.
Morbid Obesity secondary to excess calories
- Affects all aspects of care.
- Patient is unable to ambulate / exercise to significant extent that would contribute to weight loss.
DVT Prophylaxis: On Eliquis
Code Status: Full
Nonbillable note
Anticipated Discharge: Today
Subjective/Interval History
-
Date of Service: December 02, 2024
denies pain
Objective Data
-
Labs:
Laboratory Results
12/02/24
07:36
WBC 7.5
Hgb 8.9 L
Hct 28.2 L
Plt Count 248
Sodium 134 L
Potassium 4.0
Chloride 99
Carbon Dioxide 22
BUN 66 H
Creatinine 1.6 H
Glucose 115 H
Calcium 8.7
Vital Signs:
Vital Signs
Temp Pulse Resp BP Pulse Ox
97.4 F 76 20 169/87 100
12/02/24 06:59 12/02/24 08:46 12/02/24 06:59 12/02/24 08:46 12/02/24 06:59
I&O
12/01/24 12/02/24 12/03/24
06:59 06:59 06:59
Intake Total 0 / 0 1380 / 1380
Balance 0 / 0 1380 / 1380
--- NOTE | 2024-12-02 11:09 | W.DCSUMMARY ---
Discharge Summary
Discharge Data
Date of Admission: 11/30/24
Date of Discharge: 12/02/24
-
Pending Results: No
Hospital Course
64-year-old female with past medical history of CVA, dysphagia, ambulatory dysfunction, type 2 diabetes mellitus, hypertension, anemia, osteopenia, morbid obesity came to the hospital after unresponsive episode in [facility]. Upon arrival patient
was hypothermic and hypoglycemic which was likely thought was the reason of her unresponsiveness. Patient blood sugar continue to improve with lower dose of insulin. She was able to come back to her baseline mental status prior to discharge. She
also had diarrhea and was positive for norovirus which was treated symptomatically. Patient was also seen by speech therapy who recommended minced and moist diet prior to discharge. She also had renal insufficiency with mild elevated creatinine
which was likely thought was secondary to chronic kidney disease. Once her symptoms continue to improve, she was then discharged back to [facility] with instructions to follow-up with all her physicians outpatient.
Discharge Plan
-
Patient Disposition: Home (Routine Discharge)
Discharge Diagnosis/Procedures: Hypothermia
DM-II with Hypoglycemia
Renal insufficiency, chronic kidney disease
Dysphagia
Diarrhea secondary to norovirus
Diet: Other diet
Additional Diets: Minced and moist diet
Activity: With assistance and As tolerated
Driving Restrictions: No driving
Blood Work: BMP next week
Referrals:
Doug Pérez MD [Family Provider] - in less than 1 week
Prescriptions:
New
miconazole nitrate [Miconazorb AF] 2 % Powder
1 applic topical BID Qty: 0 0RF
Continued
furosemide [Lasix] 40 mg Tablet
40 mg PO BID
atorvastatin 80 mg Tablet
80 mg PO QPM
carvedilol 25 mg Tablet
25 mg PO BID
albuterol sulfate 2.5 mg /3 mL (0.083 %) Solution For Nebulization
2.5 mg INHALATION R Q6HPRN PRN (Reason: sob)
metolazone 5 mg Tablet
5 mg PO MOTUWETHFR
melatonin 3 mg Tablet
3 mg PO HS
spironolactone 25 mg Tablet
25 mg PO DAILY
clonidine HCl 0.2 mg Tablet
0.2 mg PO TID
nifedipine 90 mg Tablet Extended Release 24hr
90 mg PO DAILY
hydralazine 100 mg Tablet
100 mg PO TID
ferrous sulfate 325 mg (65 mg iron) Tablet
325 mg PO DAILY
aspirin 81 mg Tablet,Chewable
81 mg PO DAILY
bisacodyl [Dulcolax (bisacodyl)] 5 mg Tablet,Delayed Release (Dr/Ec)
5 mg PO DAILY
lisinopril 40 mg Tablet
40 mg PO DAILY
sertraline 50 mg Tablet
75 mg PO DAILY
menthol-zinc oxide [Moisture Barrier Ointment] 0.44-20.6 % Ointment
1 applic TOPICAL DAILY
Rx Instructions:
buttocks
Eliquis 5 mg Tablet
5 mg PO BID
potassium chloride 20 mEq Tablet Extended Release
20 meq PO DAILY
acetaminophen [Tylenol] 325 mg Tablet
650 mg PO Q4HPRN PRN (Reason: mild pain)
polyethylene glycol 3350 [Miralax] 17 gram Powder In Packet
17 g PO DAILY
magnesium hydroxide [Milk of Magnesia] 400 mg/5 mL Suspension
2,400 mg PO DAILYPRN PRN (Reason: if no bm by 3rd day)
bisacodyl [Dulcolax (bisacodyl)] 10 mg Suppository
10 mg [place] DAILYPRN PRN (Reason: if no bm aftr mom)
Fleet Enema 19-7 gram/118 mL Enema
118 ml IL DAILYPRN PRN (Reason: if no bm aftr dulolcax)
gabapentin 300 mg Capsule
300 mg PO TID
Refresh Digital 0.5-1-0.5 % Drops
2 drp BOTH EYES BID
Changed
insulin lispro [Humalog U-100 Insulin] 100 unit/mL Solution
10 unit SC AC Qty: 0 0RF
insulin glargine [Lantus Solostar U-100 Insulin] 100 unit/mL (3 mL) Insulin Pen
30 unit SC HS Qty: 0 0RF
Held
sennosides [senna] 8.6 mg Tablet
17.2 mg PO BID
Hold Instructions: Restart when diarrhea improves
metformin 1,000 mg Tablet
1,000 mg PO BID
Hold Instructions: Restart when blood sugar is high
Discontinued
Humalog U-100 Insulin 100 unit/mL Cartridge
32 unit SC BID
Rx Instructions:
hold for <100
Discharge Orders:
Discharge Patient (As Directed); Ordered 12/02/24
Ordered By: Trent Person
Discharge Date and Time
Discharge Date/Time: 12/02/24 15:49
Print Language: ZAMBIAN
--- NOTE | 2024-12-02 11:11 | CM ---
Addendum entered by Ilana Marin 12/02/24 11:31:
Transport time 3 pm, facility notified via text.
Addendum entered by Ilana Marin 12/02/24 11:27:
IMM reviewed bedside with patient.
TC to son and updated re transfer back today.
Original Note:
Patient medical stable for transfer to [facility] transport forms completed.
Susan from [place] updated.
Plan: return to a [facility] today
[facility]
Report# [phone]
fax# [phone]
[2024-12-02 12:24] LABS: Glucose - Point of Care 127 mg/dl (70-99)
[2024-12-02 13:00] VITALS: BP 110/71
== END 2024-12-02 15:49 | disposition home or self-care (01) | DRG 638 ==
LOC: 4 EAST ACU 03:09
PROVIDERS: Emergency Medicine; ADMITTING PHYSICIAN Hospitalist; ATTENDING PHYSICIAN Internal Medicine; EMERGENCY PHYSICIAN Emergency Medicine; FAMILY PHYSICIAN Internal Medicine
DX: E11.649 Type 2 diabetes mellitus with hypoglycemia without coma (principal); A08.11 Acute gastroenteropathy due to Norwalk agent; Z68.41 Body mass index [BMI] 40.0-44.9, adult; I48.91 Unspecified atrial fibrillation; I25.10 Atherosclerotic heart disease of native coronary artery without angina pectoris; E66.01 Morbid (severe) obesity due to excess calories; E11.22 Type 2 diabetes mellitus with diabetic chronic kidney disease; N18.30 Chronic kidney disease, stage 3 unspecified; I12.9 Hypertensive chronic kidney disease with stage 1 through stage 4 chronic kidney disease, or unspecified chronic kidney disease; D63.1 Anemia in chronic kidney disease; E78.00 Pure hypercholesterolemia, unspecified; F32.A Depression, unspecified; F41.9 Anxiety disorder, unspecified; J44.9 Chronic obstructive pulmonary disease, unspecified; M85.80 Other specified disorders of bone density and structure, unspecified site; R13.10 Dysphagia, unspecified; R68.0 Hypothermia, not associated with low environmental temperature; I69.391 Dysphagia following cerebral infarction; R13.19 Other dysphagia; Z74.01 Bed confinement status; Z79.01 Long term (current) use of anticoagulants; Z79.4 Long term (current) use of insulin; Z79.84 Long term (current) use of oral hypoglycemic drugs; Z79.82 Long term (current) use of aspirin; Z79.899 Other long term (current) drug therapy
CPT/HCPCS: 70450; 71045; 72170; 72192; 80048; 80053; 82550; 82607; 82746; 82962; 83036; 83540; 83550; 83735; 84443; 85025; 85027; 87070; 87502; 87798; 92523; 92526; 92610; 93005; 99285

== ENCOUNTER 2024-12-10 16:05 | Emergency (ER) | payer OTHER, SELFPAY ==
[2024-12-10 16:14] VITALS: BP 164/93
[2024-12-10 16:15] VITALS: BMI 41.3
[2024-12-10 16:25] LABS: Glucose - Point of Care 241 mg/dl (70-99)
[2024-12-10 16:26] LABS: % Basophils 0.3 % (0-2); % Eosinophils 0.9 % (0-6); % Immature Granulocytes 0.4 % (0-0.5); % Lymphocytes 10.7 % (20.5-51.1); % Neutrophils 81.7 % (42.2-75.2); Absolute Eosinophils 0.1 10^3/uL (0-0.7); Absolute Lymphocytes 0.7 10^3/uL (1.2-3.4); Absolute Monocytes 0.4 10^3/uL (0.1-0.6); Absolute Neutrophils 5.6 10^3/uL (1.4-6.5); Hematocrit 25.7 % (37.0-47.0); Hemoglobin 8.5 g/dL (12.0-16.0); Mean Corp Hgb Conc. 33.1 g/dL (33.0-37.0); Mean Corpuscular Hgb 29.6 pg (27.0-31.0); Mean Corpuscular Volume 89.5 fL (81.0-99.0); Mean Platelet Volume 10.4 fL (7.4-10.4); Nucleated Red Blood Cells % 0 %; Platelet Count 257 10^3/uL (130-400); Red Blood Cell Count 2.87 10^6/uL (4.20-5.40); Red Cell Dist. Width 15.9 % (11.5-14.5); White Blood Cell Count 6.8 10^3/uL (4.8-10.8)
[2024-12-10 16:36] LABS: Lactic Acid 1.3 mmol/L (0.7-2.0)
[2024-12-10 16:37] LABS: ALT (SGPT) 13 U/L (0-35); AST (SGOT) 16 U/L (14-36); Alkaline Phosphatase 91 U/L (38-126); Blood Urea Nitrogen 62 mg/dl (7-17); Calcium 8.5 mg/dl (8.4-10.2); Carbon Dioxide 31 mmol/L (22-30); Chloride 104 mmol/L (98-107); Estimated Creatinine Clearance 61 ml/min; Glucose 219 mg/dl (70-99); Lipase 50 U/L (23-300); Potassium 3.3 mmol/L (3.5-5.1); Sodium 139 mmol/L (135-145); Total Bilirubin 0.4 mg/dl (0.2-1.3); Total Protein 5.3 g/dl (6.3-8.2); eGFR 50.55
[2024-12-10 16:38] LABS: Urine Albumin 1+ (Neg - Trace); Urine Bilirubin Negative (Negative); Urine Character Clear (Clear); Urine Color Yellow; Urine Glucose Negative (Negative); Urine Ketone Negative (Negative); Urine Leukocyte Negative (Negative); Urine Nitrite Negative (Negative); Urine Occult Blood Negative (Negative); Urine Urobilinogen Negative (Neg - 1+)
[2024-12-10 16:42] VITALS: BP 177/97
[2024-12-10 16:45] LABS: Urine Red Blood Cell 0-2 /HPF (0-2); Urine Squamous Cell 0-2 /LPF (Few)
[2024-12-10 16:46] LABS: Urine Bacteria Few (Negative); Urine Mucus Few; Urine White Cell 0-2 /HPF (0-5)
--- NOTE | 2024-12-10 16:49 | ED.GENMED ---
History of Present Illness
General
Chief Complaint: Change in Mental Status
Source: patient
Exam Limitations: none
Time Seen by Provider: 12/10/24 16:09
Nursing documentation reviewed up to this point in time: agreed with
History of Present Illness
History of Present Illness:
Patient to ED from [place] for change in mental status. I spoke with son by phone who reports patient has been sleeping more, less conversant. He requested she be sent to ED to R/O UTI. NO recent illness, no recent falls.
Past History
Past History
ED Past Medical History: COPD, CVA, HTN, Hypercholesterolemia, IDDM and Psychiatric (Anxiety, depression)
Review of Systems
Review of Systems
Allergies reviewed?: Yes
All Other Systems: ROS reviewed and negative except as documented in HPI and ROS
Constitutional: Reports fatigue
EENT: Reports no symptoms
Respiratory: Reports no symptoms
Cardiac: Reports no symptoms
ABD/GI: Reports no symptoms
: Reports no symptoms
Musculoskeletal: Reports edema (+3edema BLE)
Skin: Reports no symptoms
Neurological: Reports weakness
Psychiatric: Reports no symptoms
Phy Exam
General Physical Exam
General Presentation: no apparent distress
General age: appears older than age
General Skin: warm and dry
General Habitus: obese
General Mental: usual mental status
Cardiovascular Exam
Cardiovascular Exam: regular rate/rhythm
Pulmonary Exam
Pulmonary Exam: lungs clear and no respiratory distress
Gastrointestinal Exam
Gastrointestinal Exam: normal bowel sounds, non tender, soft and no organomegaly
Musculoskeletal Exam
Musculoskeletal Exam: edema (+3 BLE) and neuro vasc intact
Skin Exam
Skin Exam: normal color, warm/dry and no rash
Psychiatric Exam
Psychiatric Exam: normal mood/affect
Course
Orders/Labs/Results
Orders:
Orders
12/10/24 16:17
CT Head W/o Iv Contrast Urgent
Comment:
Reason For Exam: change in mental status
12/10/24 16:19
Complete Blood Count/With Diff Urgent
Comprehensive Metabolic Panel Urgent
Lactic Acid Urgent
Lipase Urgent
12/10/24 16:27
NT-proBNP Urgent
Urinalysis Reflex To Culture Urgent
Date Specimen was Collected: 12/10/24
Time Specimen was Collected: 16:23
Urine Microscopic Reflex Cult Urgent
12/10/24 16:52
CR Chest - 2 Views Urgent
Comment:
Reason For Exam: weakness
Abnormal Lab Results
12/10/24 12/10/24 12/10/24
16:12 16:19 16:27
RBC 2.87 L 10^6/uL
(4.20-5.40)
Hgb 8.5 L g/dL
(12.0-16.0)
Hct 25.7 L %
(37.0-47.0)
RDW 15.9 H %
(11.5-14.5)
Absolute Lymphs (auto) 0.7 L 10^3/uL
(1.2-3.4)
Neutrophils % 81.7 H %
(42.2-75.2)
Lymphocytes % 10.7 L %
(20.5-51.1)
Potassium 3.3 L mmol/L
(3.5-5.1)
Carbon Dioxide 31 H mmol/L
(22-30)
BUN 62 H mg/dl
(7-17)
Creatinine 1.2 H mg/dL
(0.6-1.0)
Glucose 219 H mg/dl
(70-99)
Total Protein 5.3 L g/dl
(6.3-8.2)
Albumin 3.0 L g/dl
(3.5-5.0)
Urine Bacteria (Reflex) Few A
(Negative)
Urine Albumin (Reflex) 1+ A
(Neg - Trace)
POC Glucose 241 H mg/dl
(70-99)
12/10/24 16:19
12/10/24 16:19
Vital Signs
Initial and Last Documented VS:
Initial Vital Signs
Temp Pulse Resp BP Pulse Ox
98.7 F 76 18 164/93 100
12/10/24 16:14 12/10/24 16:14 12/10/24 16:14 12/10/24 16:14 12/10/24 16:14
Last Documented Vital Signs
Temp Pulse Resp BP Pulse Ox
98.7 F 83 13 169/93 99
12/10/24 16:14 12/10/24 23:00 12/10/24 22:30 12/10/24 23:00 12/10/24 20:45
*Critical Care Note
Total Time (30-74mins, 75-104mins- exclusive of procedures): Not Applicable
Update Note
Update Note:
Patient to ED as requested by son to r/o UTI, states she has been more fatigued and less conversant. Labs, CT reviewed, no findings to explain her symptoms. +3 edema BLE which son reports is normal for her. On Lasix. NO respiratory distrsess. No
evidence of pulm edema on CXR. WIll discharge back to [facility]. Son updated on plan.
ED Attending Note
-
Portions of this chart may have been created with voice recognition software.� Occasional wrong word or��sound alike� substitutions may have occurred due to the inherent limitations of voice recognition software.
Discharge Plan
Departure
Patient Disposition: Care Home/SNF
Date of Disposition: 12/10/24
Time of Disposition: 21:22
Patient with high blood pressure during this ER visit?: No
Condition: Good
Covid-19: Not Applicable
Discharge Problem:
Weakness
Instructions: Weakness
Prescriptions:
No Action
furosemide [Lasix] 40 mg Tablet
40 mg PO BID
atorvastatin 80 mg Tablet
80 mg PO QPM
carvedilol 25 mg Tablet
25 mg PO BID
sennosides [senna] 8.6 mg Tablet
17.2 mg PO BID
albuterol sulfate 2.5 mg /3 mL (0.083 %) Solution For Nebulization
2.5 mg INHALATION R Q6HPRN PRN (Reason: sob)
metolazone 5 mg Tablet
5 mg PO MOTUWETHFR
melatonin 3 mg Tablet
3 mg PO HS
spironolactone 25 mg Tablet
25 mg PO DAILY
clonidine HCl 0.2 mg Tablet
0.2 mg PO TID
nifedipine 90 mg Tablet Extended Release 24hr
90 mg PO DAILY
hydralazine 100 mg Tablet
100 mg PO TID
ferrous sulfate 325 mg (65 mg iron) Tablet
325 mg PO DAILY
metformin 1,000 mg Tablet
1,000 mg PO BID
aspirin 81 mg Tablet,Chewable
81 mg PO DAILY
bisacodyl [Dulcolax (bisacodyl)] 5 mg Tablet,Delayed Release (Dr/Ec)
5 mg PO DAILY
lisinopril 40 mg Tablet
40 mg PO DAILY
Rx Instructions:
hold if sbp less than 100
sertraline 50 mg Tablet
75 mg PO DAILY
Eliquis 5 mg Tablet
5 mg PO BID
potassium chloride 20 mEq Tablet Extended Release
20 meq PO DAILY
acetaminophen [Tylenol] 325 mg Tablet
650 mg PO Q4HPRN MDD 3gm PRN (Reason: mild pain/fever >101.0)
polyethylene glycol 3350 [Miralax] 17 gram Powder In Packet
17 g PO DAILY
Rx Instructions:
in 6oz water
magnesium hydroxide [Milk of Magnesia] 400 mg/5 mL Suspension
2,400 mg PO DAILYPRN PRN (Reason: if no bm after 3 days)
bisacodyl [Dulcolax (bisacodyl)] 10 mg Suppository
10 mg [place] DAILYPRN PRN (Reason: if no bm aftr mom)
Fleet Enema 19-7 gram/118 mL Enema
118 ml [place] DAILYPRN PRN (Reason: if no bm aftr bisacodyl supp)
gabapentin 300 mg Capsule
300 mg PO TID
miconazole nitrate [Miconazorb AF] 2 % Powder
1 applic topical BID Qty: 0 0RF
Rx Instructions:
to groin folds
insulin lispro [Humalog U-100 Insulin] 100 unit/mL Solution
10 unit SC AC Qty: 0 0RF
insulin glargine [Lantus Solostar U-100 Insulin] 100 unit/mL (3 mL) Insulin Pen
30 unit SC HS Qty: 0 0RF
Artificial Tears([id number]) 1-0.2-0.2 % Drops
2 drp OPHTHALMIC (EYE) BID
Rx Instructions:
both eyes
Referrals:
Doug Pérez MD [Family Provider] - Tomorrow
Interventions
Interventions:
*Risk Screen - Suicide Last Done: 12/10/24 16:15
*General Assessment Last Done: 12/10/24 16:15
*Neglect/Abuse Screening Last Done: 12/10/24 16:15
*ED- Fall Risk Assessment Last Done: 12/10/24 16:15
*ED COVID-19 Vaccine History Last Done: 12/10/24 16:15
*Nursing Disposition Last Done: 12/10/24 23:17
ED- Pulmonary Assessment Last Done: 12/10/24 16:15
ED- Neurological Assessment Last Done: 12/10/24 16:15
ED- Cardiac Assessment Last Done: 12/10/24 16:15
ED Swallowing Screen Last Done: 12/10/24 16:15
Discharge Date and Time
Discharge Date/Time: 12/10/24 23:19
Print Language: NIUEAN
[2024-12-10 17:03] LABS: NT-proBNP 20400 pg/ml
[2024-12-10 19:24] VITALS: BP 172/109
[2024-12-10 22:00] VITALS: BP 193/102
[2024-12-10 22:20] VITALS: BP 196/98
[2024-12-10 23:00] VITALS: BP 169/93
== END 2024-12-10 23:19 ==
LOC: EMR 16:05
PROVIDERS: Nurse Practitioner; EMERGENCY PHYSICIAN Emergency Medicine; FAMILY PHYSICIAN Internal Medicine
DX: R53.1 Weakness (principal); J44.9 Chronic obstructive pulmonary disease, unspecified; E11.9 Type 2 diabetes mellitus without complications; E78.00 Pure hypercholesterolemia, unspecified; I10 Essential (primary) hypertension; Z86.73 Personal history of transient ischemic attack (TIA), and cerebral infarction without residual deficits; Z79.4 Long term (current) use of insulin
CPT/HCPCS: 99284; 70450; 71046; 80053; 81003; 81015; 82962; 83605; 83690; 83880; 85025